=== PATIENT | female | born 1980 | race Caucasian/White ===

== ENCOUNTER 2017-01-16 19:39 | Inpatient (IN) | payer OTHER ==
--- NOTE | ~2017-01-16 | DS ---
Unit #: [id number] #: [id number] Patient: NARCISO CUELLAR [id number] [facility] [address] [place] [address] [id number] MR#: [id number] NAME: NARCISO CUELLAR. ROOM: P130 Age: 36 Sex: F Admission Date: 01/16/2017 : 1980 Discharge Date: 01/20/2017 Attending Physician: Fortino Clarke M.D. Primary Care Physician: Primary Care Physician No DISCHARGE SUMMARY REASON FOR ADMISSION The patient is a 36-year-old woman with a history of depression who reported to [facility] reporting increasing mood instability, helpless, uncontrollable crying, and multiple thoughts of suicide with multiple plans. She could not contract for safety and was admitted for stabilization. DIAGNOSTIC STUDIES LABORATORY DATA: Please see referring hospital records. HOSPITAL COURSE The patient was admitted and placed on suicide precautions. Zoloft was increased to 150 mg daily and Geodon 40 mg twice daily was added for psychotic features and mood stability. Trazodone was provided for insomnia, and her home primary care medicines were restarted. She had a mild sedation effect the first day. She took her Geodon, but otherwise she showed significant improvement with this medication. She participated actively and appropriately in unit groups and activities, and on the date of discharge had a bright affect, good mood, and no further suicidal ideation, intent, or plan. She was discharged in stable condition with followup through [facility]. DISCHARGE DIAGNOSES AXIS I: Major depression with psychotic features, F33.3 AXIS II: No diagnosis. AXIS III: Diabetes. Hyperlipidemia. History of breast cancer status post treatment. FOLLOWUP CARE Follow up with [facility] and primary care physician. DISCHARGE MEDICATIONS 1. Zoloft 150 mg daily for depression. 2. Geodon 40 mg twice daily with food for mood stability. Primary care medicines included: 1. Ditropan 5 mg twice daily for overactive bladder. 2. Lipitor 40 mg at bedtime for cholesterol. 3. Protonix 40 mg daily for GERD. 4. Glucophage 1000 mg daily before breakfast for diabetes. 5. Nolvadex 20 mg daily. Unit #: [id number] #: [id number] Patient: NARCISO CUELLAR CONDITION AT DISCHARGE Improved. PROGNOSIS Good. DIET AND ACTIVITY Per primary care physician. Dictated by... Fortino Clarke M.D. TERRANCE/loly TD: 01/20/2017 12:12 JOB #: [id number] DISCHARGE SUMMARY Page 1 of 1 X Fortino Clarke MD X DISCHARGE SUMMARY
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
--- NOTE | ~2017-01-16 | HP ---
Unit #: [id number] #: [id number] Patient: ARASELI CUELLAR [id number] [place] [address] [id number] MR#: [id number] NAME: ARASELI CUELLAR. ROOM: P130 Age: 36 Sex: F Admission Date: 01/16/2017 : 1980 Attending Physician: Fortino Clarke M.D. Admitting Physician: Fortino Clarke M.D. Primary Care Physician: Primary Care Physician No HISTORY AND PHYSICAL HISTORY OF PRESENT ILLNESS Araseli is a 36 year old admitted to [address] [place] [address] with depression and verbalizing wanting to hurt herself. PAST MEDICAL HISTORY 1. Morbid obesity 2. Diabetes mellitus 3. Hyperlipidemia 4. History of withdrawal seizures 5. History of breast cancer at 30 years old PAST SURGICAL HISTORY 1. x3 2. Bilateral mastectomies 3. Cholecystectomy 4. T & A 5. Three umbilical hernia repairs ALLERGIES Penicillin SOCIAL HISTORY Smokes one pack per day. Denies alcohol. Admits to using marijuana on a daily basis. FAMILY HISTORY Medically noncontributory. REVIEW OF SYSTEMS CONSTITUTIONAL: No fever or chills. HEENT: Denies any sore throat, ear pain or runny nose. CARDIOVASCULAR: Denies chest pain, irregular heart rhythm or palpitations. CHEST: Denies shortness of breath or cough. No hemoptysis. GASTROINTESTINAL: Denies nausea, vomiting, diarrhea or chronic constipation. ENDOCRINE: Denies history of increased thirst or urination. No recent significant weight loss or gain. GENITOURINARY: Denies dysuria, frequency, or hematuria. SKIN: Denies any rashes. HEMATOLOGIC: Denies history of increased bleeding or bruising. MUSCULOSKELETAL: Denies any hot, swollen joints. No generalized muscle pain. Unit #: [id number] #: [id number] Patient: ARASELI CUELLAR NEUROLOGIC: Denies problems with vision or speech. No frequent, severe headaches. No numbness, tingling or weakness in any extremities. Denies loss of bladder or bowel control. CURRENT MEDICATIONS 1. Zoloft 150 mg q.a.m. 2. Geodon 40 mg b.i.d. 3. Desyrel 50 mg q.h.s. p.r.n. 4. Nolvadex 20 mg q day 5. Protonix 40 mg q day 6. Glucophage 1000 mg q.a.m. 7. Milk of Magnesia p.r.n. 8. Maalox p.r.n. 9. Tylenol p.r.n. 10. Lipitor 40 mg q day 11. Ditropan 5 mg b.i.d. 12. Nicotine patch 14 mg q day PHYSICAL EXAMINATION GENERAL: Alert, morbidly obese in no apparent distress. VITAL SIGNS: Blood pressure 136/64, heart rate 80, respirations 16, temperature 98.6. WEIGHT: 222 pounds. HEIGHT: 5'3". SKIN: Warm and dry without rash or lesion. HEENT: Normocephalic. TMs not viewed. Oral and nasal passages clear. Conjunctivae clear. Pupils equal, round and reactive to light and accommodation. Extraocular movements intact. NECK: Supple without lymphadenopathy or thyromegaly. HEART: Regular rate and rhythm without murmur. LUNGS: Clear. ABDOMEN: Soft, nontender. : Not done. EXTREMITIES: No evidence of cyanosis, clubbing or edema. Moves all extremities without focal deficit. NEUROLOGICAL: Grossly within normal limits. Cranial Nerves: II: Visual barnett are intact. III, IV AND : Extraocular movements are intact. Pupils are equal, round and reactive to light. V: Facial sensation is grossly normal. VII: Facial movements and expression are normal. VIII: Auditory acuity grossly intact. IX, X: Uvula is midline. Phonation is normal. XI: Patient shrugs shoulders and turns head normally. XII: Tongue protrudes in the midline. Sensory and Motor Function: Sensory and motor sensation is grossly normal. Motor: moves all extremities well. Coordination: Gait is normal. Deep Tendon Reflexes: Intact. IMPRESSION Psychiatric admission RECOMMENDATIONS PSYCHIATRIC: Per psychiatrist. MEDICAL: I see no contraindications to participating in facility's activities. MEDICAL PROGNOSIS Good. Unit #: [id number] #: [id number] Patient: ARASELI CUELLAR MEDICAL CONDITION Stable. Dictated by... Halina Galvez P.A.-C. for Owen Esposito/elvis TD: 01/17/2017 21:19 JOB #: [id number] HISTORY AND PHYSICAL Page 1 of 1 X Halina Galvez HISTORY AND PHYSICAL
--- NOTE | ~2017-01-16 | PN ---
Unit #: [id number] #: [id number] Patient: ARASELI CUELLAR [id number] [facility] [address] [place] [address] [id number] MR#: [id number] NAME: ARASELI CUELLAR ROOM: P130 Age: 36 Sex: F Admission Date: 01/16/2017 : 1980 Attending Physician: Fortino Clarke M.D. Admitting Physician: Fortino Clarke M.D. Primary Care Physician: Primary Care Physician Gill JOSEPH PROGRESS NOTES DATE 01/18/2017 DISCUSSION Araseli is somewhat sedated from Geodon today. Her mood continues to be labile and depressed with a congruent affect. She is alert and fully oriented. Her memory and concentration are fair. Her thought processes are nonpsychotic. She continues to report suicidal ideation with multiple plans and could not contract for safety. ASSESSMENT Major depression with psychotic features. PLAN Continue current treatment plan. Dictated by... Owen MarquesH/bzyoan TD: 01/19/2017 13:02 JOB #: [id number] [facility] PROGRESS NOTES Page 1 of 1 X Fortino Clarke MD PROGRESS NOTE
--- NOTE | ~2017-01-16 | PN ---
Unit #: [id number] #: [id number] Patient: ARASELI CUELLAR [id number] [facility] [address] [place] [address] [id number] I MR#: [id number] NAME: ARASELI CUELLAR ROOM: P130 Age: 36 Sex: F Admission Date: 01/16/2017 : 1980 Attending Physician: Fortino Clarke M.D. Admitting Physician: Fortino Clarke M.D. Primary Care Physician: Primary Care Physician Gill JOSEPH PROGRESS NOTES DATE 01/19/2017 DISCUSSION Araseli shows some improvement today. She is neater in her dress and grooming. Her speech is more spontaneous. Her mood is better with a brighter affect. She is less labile, irritable. She is alert and fully oriented with no psychosis. She denies any suicidal ideation at this point. ASSESSMENT Major depression with psychotic features. PLAN At this point I will schedule discharge for tomorrow with a ride back to [place] home [place]. We will hold this plan if suicidal ideation recurs in the meantime. Dictated by... Owen Marques/loly TD: 01/20/2017 11:42 JOB #: [id number] [facility] PROGRESS NOTES Page 1 of 1 X Fortino Clarke MD PROGRESS NOTE
== END 2017-01-20 10:45 | disposition home or self-care (01) | DRG 885 ==
LOC: P1S 19:39
DX: F33.3 Major depressive disorder, recurrent, severe with psychotic symptoms (principal); R45.851 Suicidal ideations; E66.01 Morbid (severe) obesity due to excess calories; E78.5 Hyperlipidemia, unspecified; E11.9 Type 2 diabetes mellitus without complications; Z88.0 Allergy status to penicillin; Z81.4 Family history of other substance abuse and dependence; Z81.8 Family history of other mental and behavioral disorders; Z91.5 Personal history of self-harm; Z85.3 Personal history of malignant neoplasm of breast; Z90.49 Acquired absence of other specified parts of digestive tract; F17.210 Nicotine dependence, cigarettes, uncomplicated; Z79.84 Long term (current) use of oral hypoglycemic drugs; Z68.39 Body mass index [BMI] 39.0-39.9, adult
CPT/HCPCS: 82947; 83036